=== PATIENT | female | born 1985 ===

== ENCOUNTER 2022-03-31 09:41 | Outpatient (CLI) | payer OTHER | END 2022-03-31 10:50 | disposition home or self-care (01) | LOC: PRENATAL 09:41 | PROVIDERS: ATTEND Obstetrics & Gynecology Maternal & Fetal Medicine | DX: O35.0XX0 Maternal care for (suspected) central nervous system malformation in fetus, not applicable or unspecified (principal); O35.3XX0 Maternal care for (suspected) damage to fetus from viral disease in mother, not applicable or unspecified; O09.529 Supervision of elderly multigravida, unspecified trimester; Z3A.20 20 weeks gestation of pregnancy ==

== ENCOUNTER 2022-06-23 08:30 | Outpatient (CLI) | payer OTHER | END 2022-06-23 10:00 | disposition home or self-care (01) | LOC: PRENATAL 08:30 | PROVIDERS: ATTEND Obstetrics & Gynecology Maternal & Fetal Medicine | DX: O26.849 Uterine size-date discrepancy, unspecified trimester (principal); O35.0XX0 Maternal care for (suspected) central nervous system malformation in fetus, not applicable or unspecified; O09.529 Supervision of elderly multigravida, unspecified trimester; Z3A.32 32 weeks gestation of pregnancy ==

== ENCOUNTER 2022-08-10 07:34 | Inpatient (IN) | payer OTHER ==
[~2022-08-10] VITALS: Ht 170.2 cm; Wt 90.7 kg
[2022-08-10] MEDS ORDERED: PRENATAL CAPLE1 EAC1 PO (08:41)
[2022-08-10] MEDS ORDERED: IRON325 MG PO (08:44)
[2022-08-10] MEDS ORDERED: ZYRTEC10 MG PO (08:44)
[2022-08-12] MEDS ORDERED: DOCUSATE SODIU100 MG PO (09:38)
== END 2022-08-12 14:06 | disposition home or self-care (01) | DRG 768 ==
LOC: LDR 07:34 → OB/GYN 07:34
PROVIDERS: ADMIT Obstetrics & Gynecology; ATTEND Obstetrics & Gynecology
PROC: 10E0XZZ Delivery of Products of Conception, External Approach (ICD-10-PCS; principal; 2022-08-10)
PROC: 0DQR0ZZ Repair Anal Sphincter, Open Approach (ICD-10-PCS; 2022-08-10)
PROC: 4A1HXCZ Monitoring of Products of Conception, Cardiac Rate, External Approach (ICD-10-PCS; 2022-08-10)
DX: O70.21 Third degree perineal laceration during delivery, IIIa (principal); Z37.0 Single live birth; Z3A.39 39 weeks gestation of pregnancy; Z20.822 Contact with and (suspected) exposure to COVID-19